=== PATIENT | male | born 2005 | race Two or more races ===

== ENCOUNTER 2025-06-06 00:25 | Emergency (ER) | payer OTHER ==
[~2025-06-06] VITALS: Ht 198.1 cm; Wt 190.9 kg
[2025-06-06 00:31] VITALS: BP 133/86; PULSE 84; RESP 20; TEMP 97.8; O2SAT 100
[2025-06-06] MEDS: IBUPROFEN 400 MG TABLET PO ONE (01:57)
== END 2025-06-06 05:17 | disposition home or self-care (01) ==
LOC: EMS 00:25
DX: S82.62XA Displaced fracture of lateral malleolus of left fibula, initial encounter for closed fracture (principal); X50.1XXA Overexertion from prolonged static or awkward postures, initial encounter; Y93.89 Activity, other specified; Y92.89 Other specified places as the place of occurrence of the external cause; Y99.8 Other external cause status
CPT/HCPCS: 99283